=== PATIENT | male | born 1950 | race Hispanic/Latino ===

== ENCOUNTER 2021-12-28 14:50 | Outpatient (RCR) | payer OTHER | END 2022-01-06 | LOC: PT 14:50 | PROVIDERS: ATTEND Specialist | DX: Z86.73 Personal history of transient ischemic attack (TIA), and cerebral infarction without residual deficits (principal) ==

== ENCOUNTER 2022-01-30 13:58 | Outpatient (RCR) | payer OTHER | END 2022-02-06 | LOC: PT 13:58 | PROVIDERS: ATTEND Specialist | DX: Z86.73 Personal history of transient ischemic attack (TIA), and cerebral infarction without residual deficits (principal) ==

== ENCOUNTER 2022-03-05 14:54 | Outpatient (RCR) | payer OTHER | END 2022-03-08 | LOC: OT 14:54 | PROVIDERS: ATTEND Specialist | DX: I63.9 Cerebral infarction, unspecified (principal); R53.1 Weakness ==

== ENCOUNTER 2022-03-21 12:50 | Outpatient (RCR) | payer MEDICARE, OTHER | END 2022-04-08 | LOC: OT 12:50 | PROVIDERS: ATTEND Specialist | DX: I63.9 Cerebral infarction, unspecified (principal); R53.1 Weakness ==

== ENCOUNTER 2022-08-17 18:11 | Emergency (ER) | payer MEDICARE ==
[~2022-08-17] VITALS: Ht 177.8 cm; Wt 79.4 kg
== END 2022-08-17 19:52 | disposition home or self-care (01) ==
LOC: ER 18:37
DX: T16.1XXA Foreign body in right ear, initial encounter (principal); H61.21 Impacted cerumen, right ear; X58.XXXA Exposure to other specified factors, initial encounter
CPT/HCPCS: 99282